=== PATIENT | female | born 1970 | race African-American/Black ===

== ENCOUNTER 2016-11-26 10:22 | Emergency (ER) | payer MEDICAID, OTHER ==
[~2016-11-26] VITALS: Ht 157.5 cm; Wt 91.0 kg
[2016-11-26] MEDS ORDERED: AMLO10TA80 PO (10:40)
[2016-11-26] MEDS ORDERED: HYDR25TA PO (10:40)
[2016-11-26] MEDS ORDERED: MORPHINE SULFATE 10 MG/ML CPJ IM ONE (14:30)
[2016-11-26] MEDS ORDERED: ONDANSETRON 4MG ODT PO ONE (14:30)
[2016-11-26 14:49] VITALS: BP 155/99
[2016-11-26] MEDS ORDERED: CLONIDINE 0.1MG TABLET PO ONE (15:00)
== END 2016-11-26 15:12 | disposition home or self-care (01) ==
LOC: ER 10:29
DX: S43.031A Inferior subluxation of right humerus, initial encounter (principal); I10 Essential (primary) hypertension; M75.91 Shoulder lesion, unspecified, right shoulder; Y08.89XA Assault by other specified means, initial encounter; Y93.89 Activity, other specified; Y92.9 Unspecified place or not applicable; Z76.0 Encounter for issue of repeat prescription
CPT/HCPCS: 73030; 81025; 96372; 99284; J2270; Q0162; Z7610; A4565

== ENCOUNTER 2018-07-06 17:17 | Emergency (ER) | payer MEDICAID ==
[~2018-07-06] VITALS: Ht 162.6 cm; Wt 100.0 kg
[~2018-07-06 17:17] MED LIST: AMLO10TA80 PO; HYDR25TA PO
[2018-07-06 17:31] VITALS: BP 200/108
[2018-07-06] MEDS ORDERED: QUET100T PO (17:35)
[2018-07-06] MEDS ORDERED: ALPR1TAB2 PO (17:35)
== END 2018-07-06 20:00 | disposition left against medical advice (07) ==
LOC: ER 17:17
DX: Z53.21 Procedure and treatment not carried out due to patient leaving prior to being seen by health care provider (principal)